=== PATIENT | female | born 1940 | race Caucasian/White ===

== ENCOUNTER → 2017-02-28 | Outpatient (CLI) | payer MEDICARE ==
[2017-02-28 10:23] LABS: ALANINE AMINOTRANSFERASE 31 U/L (9-52); ALBUMIN 3.7 g/dL (3.5-5.0); ALKALINE PHOSPHATASE 61 U/L (38-126); ANION GAP 9 (5-19); ASPARTATE AMINO TRANSFERASE 25 U/L (14-36); BILIRUBIN,DIRECT 0.4 mg/dL (0.0-0.4); BILIRUBIN,TOTAL 0.9 mg/dL (0.2-1.3); BLOOD UREA NITROGEN 14 mg/dL (7-20); CALCIUM 9.2 mg/dL (8.4-10.2); CARBON DIOXIDE 32 mmol/L (22-30); CHLORIDE 100 mmol/L (98-107); CHOLESTEROL 209.46 mg/dL (0-200); CREATININE RESULT 0.66 mg/dL (0.52-1.25); Direct HDL 50 mg/dL (>40); GLUCOSE 106 mg/dL (75-110); POTASSIUM 4.4 mmol/L (3.6-5.0); SODIUM 140.8 mmol/L (137-145); TRIGLYCERIDES 151 mg/dL (<150)
[2017-02-28 10:34] LABS: DIRECT LDL 119 mg/dL (<100)
[2017-02-28 10:39] LABS: VLDL CHOLESTEROL 30.2 mg/dL (10-31)
== END ==
LOC: OD 08:40
PROVIDERS: ATTEND Internal Medicine
DX: R07.2 Precordial pain (principal); I48.0 Paroxysmal atrial fibrillation; I47.1 Supraventricular tachycardia; R09.89 Other specified symptoms and signs involving the circulatory and respiratory systems; E78.4 Other hyperlipidemia; I10 Essential (primary) hypertension; E78.5 Hyperlipidemia, unspecified; Z79.899 Other long term (current) drug therapy
CPT/HCPCS: 36415; 80053; 80061

== ENCOUNTER → 2017-07-01 | Outpatient (CLI) | payer MEDICARE ==
--- NOTE | 2017-07-01 08:28 | RADIOLOGY REPORT (SQ) ---
EXAM DESCRIPTION: CT SINUSES FOR ENT COMPLETED DATE/TIME: 07/01/2017 7:37 am REASON FOR STUDY: BENIGN NEOPLASM OF MIDDLE EAR, NASAL CAVITY AND ACCESSORY SINUSES (D14.0) D14.0 B ENIGN NEOPLASM OF MID EAR, NASL CAV AND ACCESSORY SIN COMPARISON: None. TECHNIQUE: Noncontrast scanning through the paranasal sinuses using bone algorithm. Reconstructed MPR images reviewed. All images stored on PACS. Images acquired for image guided surgery. All CT scanners at this facility use dose modulation, iterative reconstruction, and/or weight based d osing when appropriate to reduce radiation dose to as low as reasonably achievable (ALARA). [facility]: Dose Right [facility]: CareDose [facility]: Dose Right [facility]: Teradose 4D [facility]: Datameer RADIATION DOSE: mGy. FINDINGS: NASAL PASSAGES: Soft tissue in the inferior left nasal passage. Right nasal passage clear. OSTEOMEATAL UNITS AND NASOFRONTAL DUCTS: Soft tissue occluding the right osteomeatal unit. Left oste omeatal unit is patent. No agger nasi or Arnie cells. MAXILLARY SINUSES: Soft tissue filling the right maxillary sinus. Left maxillary sinus clear. Maxill belle sinus outlets are patent. ETHMOID SINUSES: Well-pneumatized and clear. SPHENOID SINUSES: Well-pneumatized and clear. No sphenoethmoid air cells or pneumatized pterygoid rec ess. No pneumatized dorsal sella. FRONTAL SINUSES: Well-pneumatized and clear. MASTOID AIR CELLS: Clear. ORBITS: Normal and symmetrical. NASAL SEPTUM: Midline. No nasal septal spurs. TEMPOROMANDIBULAR JOINTS: Normal. TURBINATES: No pneumatized turbinates. MUCOPERIOSTEAL THICKENING: No. MUCOCELE: No. OTHER: No other significant findings. IMPRESSION: SOFT TISSUE FILLING THE RIGHT MAXILLARY SINUS WITH OCCLUSION OF THE OSTEOMEATAL UNIT. T HERE IS ALSO SOFT TISSUE IN THE INFERIOR LEFT NASAL CAVITY. TECHNICAL DOCUMENTATION: JOB ID: [id number] Quality ID # 436: Final reports with documentation of one or more dose reduction techniques (e.g., Au tomated exposure control, adjustment of the mA and/or kV according to patient size, use of iterative reconstruction technique) 2010 [employer]- All Rights Reserved
== END ==
LOC: RAD 07:10
PROVIDERS: ATTEND Internal Medicine
DX: D14.0 Benign neoplasm of middle ear, nasal cavity and accessory sinuses (principal)
CPT/HCPCS: 70486

== ENCOUNTER → 2017-09-01 | Outpatient (CLI) | payer MEDICARE | LOC: OD 13:15 | PROVIDERS: ATTEND Internal Medicine | DX: Z53.9 Procedure and treatment not carried out, unspecified reason (principal) ==

== ENCOUNTER → 2017-09-03 | Outpatient (CLI) | payer MEDICARE ==
[2017-09-03 11:25] LABS: CHOLESTEROL 171.29 mg/dL (0-200); Direct HDL 47 mg/dL (>40); TRIGLYCERIDES 161 mg/dL (<150)
[2017-09-03 11:36] LABS: DIRECT LDL 95 mg/dL (<100)
[2017-09-03 11:40] LABS: VLDL CHOLESTEROL 32.2 mg/dL (10-31)
== END ==
LOC: OD 09:08
PROVIDERS: ATTEND Internal Medicine
DX: E78.4 Other hyperlipidemia (principal); R07.2 Precordial pain; I48.0 Paroxysmal atrial fibrillation; I47.1 Supraventricular tachycardia; R09.89 Other specified symptoms and signs involving the circulatory and respiratory systems; I10 Essential (primary) hypertension; Z79.899 Other long term (current) drug therapy
CPT/HCPCS: 36415; 80061

== ENCOUNTER → 2017-12-17 | Outpatient (CLI) | payer MEDICARE ==
--- NOTE | 2017-12-17 10:43 | RADIOLOGY REPORT (SQ) ---
EXAM DESCRIPTION: CT CHEST WITH COMPLETED DATE/TIME: 12/17/2017 10:11 am REASON FOR STUDY: R05 COUGH R05 COUGH COMPARISON: Chest x-ray dated September 2014 TECHNIQUE: CT scan of the chest performed using helical scanning technique with dynamic intravenous contrast injection. Images reviewed with lung, soft tissue and bone windows. Reconstructed coronal and sagittal MPR images reviewed. All images stored on PACS. All CT scanners at this facility use dose modulation, iterative reconstruction, and/or weight based d osing when appropriate to reduce radiation dose to as low as reasonably achievable (ALARA). [facility]: Dose Right [facility]: CareDose [facility]: Dose Right [facility]: Teradose 4D [facility]: Zenter CONTRAST TYPE AND DOSE: contrast/concentration: Isovue 370.00 mg/ml; Total Contrast Delivered: 79.2 ml; Total Saline Delivered: 20.0 ml RENAL FUNCTION: Creatinine 0.5 RADIATION DOSE: CT Rad equipment meets quality standard of care and radiation dose reduction techniq ues were employed. CTDIvol: 19.2 mGy. DLP: 758 mGy-cm. . LIMITATIONS: None. FINDINGS: LUNGS AND PLEURA: Fairly diffuse reticulonodular densities are identified most likely claims collector livia in nature. An acute process including an atypical pneumonia cannot be completely excluded howeve r and clinical correlation and followup is recommended. A somewhat irregular pleural-based mass is i dentified in the left upper lung field centered on image number 47 most consistent with pleural and p arenchymal scarring although the possibility of a pleural base mass cannot be excluded. PET-CT scan or followup is recommended to confirm stability. No consolidations or pleural effusions are identifi ed. HILAR AND MEDIASTINAL STRUCTURES: No identified masses or abnormal nodes. HEART AND VASCULAR STRUCTURES: No aneurysm or dissection. No central pulmonary emboli. No pericardi al effusion. HARDWARE: None in the chest. UPPER ABDOMEN: No significant findings. Limited exam. THYROID AND OTHER SOFT TISSUES: No masses. No adenopathy. BONES: Bony structures are osteopenic with a thoracic scoliosis convex to the right and associated de generative changes. OTHER: No other significant finding. IMPRESSION: Fairly diffuse reticulonodular densities as noted above most likely chronic in nature ho wever the possibility of an acute process including an atypical pneumonia cannot be completely exclud ed in clinical correlation followup is recommended. Small somewhat irregular pleural base mass in th e left upper lung field as noted above most consistent with pleural and parenchymal scarring although the possibility of a pleural base mass cannot be excluded. PET-CT scan or followup is recommended f or further evaluation. Other findings as noted above TECHNICAL DOCUMENTATION: JOB ID: [id number] Quality ID # 436: Final reports with documentation of one or more dose reduction techniques (e.g., Au tomated exposure control, adjustment of the mA and/or kV according to patient size, use of iterative reconstruction technique) 2010 [employer]- All Rights Reserved Reading location - IP/workstation name: [email or web address] [email or web address] BEDS AT THE [facility]
== END ==
LOC: RAD 08:43
PROVIDERS: ATTEND Internal Medicine
DX: R05 Cough (principal); R91.8 Other nonspecific abnormal finding of lung field
CPT/HCPCS: 71260; 82565

== ENCOUNTER → 2018-01-13 | Outpatient (CLI) | payer MEDICARE ==
--- NOTE | 2018-01-14 08:47 | RADIOLOGY REPORT (SQ) ---
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 TECHNIQUE: Blood glucose level was verified. Above dose of FDG was injected intravenously. 2-D seg mented attenuation correction images were obtained from the base of the skull to the midthighs. Nonc ontrast CT images were obtained for attenuation correction and fusion with emission images. CT image s were performed without oral or intravenous contrast and are not sensitive for parenchymal lesions. A series of overlapping emission PET images were obtained. Images reviewed and manipulated at [facility] work station by the radiologist. Images stored on PACS. LIMITATIONS: None. FINDINGS: HEAD AND NECK: No areas of abnormal metabolic activity in the soft tissues of the head and neck. CHEST: No areas of abnormal metabolic activity in the chest. Specifically, the 11 mm pleural based s oft tissue density along the left superior segment lower lobe image number 91 is non metabolic. This correlates with the area of concern on CT chest 12/17/2017. ABDOMEN AND PELVIS: No areas of abnormal metabolic activity in the abdomen or pelvis. Expected physi ologic activity is present in the genitourinary system and bowel. PROXIMAL LOWER EXTREMITIES: No areas of abnormal metabolic activity in the soft tissues of the lower extremities. BONES: No abnormal metabolic activity in the visualized skeleton. ADDITIONAL CT FINDINGS: Opacified right maxillary sinus with air-fluid level from sinusitis. Hiatal hernia. Post cholecystectomy. Partial right colectomy. Degenerative changes lumbar spine. Right h ip hardware OTHER: Liver background activity 2.3 SUV. Blood pool background activity 1.9 SUV. IMPRESSION: No worrisome findings for malignancy. Non metabolic pleural-based scarring, left side TECHNICAL DOCUMENTATION: JOB ID: [id number] [employer]- All Rights Reserved Reading location - IP/workstation name: [email or web address]
== END ==
LOC: RAD 15:01
PROVIDERS: ATTEND Internal Medicine
DX: D38.2 Neoplasm of uncertain behavior of pleura (principal); J94.9 Pleural condition, unspecified
CPT/HCPCS: 78815; A9552

== ENCOUNTER → 2018-03-10 | Outpatient (CLI) | payer MEDICARE ==
[2018-03-10 12:09] LABS: ALANINE AMINOTRANSFERASE 88 U/L (9-52); ALBUMIN 3.8 g/dL (3.5-5.0); ALKALINE PHOSPHATASE 62 U/L (38-126); ASPARTATE AMINO TRANSFERASE 143 U/L (14-36); BILIRUBIN,DIRECT 0.5 mg/dL (0.0-0.4); CHOLESTEROL 155.03 mg/dL (0-200); TOTAL PROTEIN 7.1 g/dL (6.3-8.2); TRIGLYCERIDES 139 mg/dL (<150)
[2018-03-10 12:20] LABS: DIRECT LDL 89 mg/dL (<100)
== END ==
LOC: OD 10:38
PROVIDERS: ATTEND Internal Medicine
DX: E78.4 Other hyperlipidemia (principal); I10 Essential (primary) hypertension; R07.2 Precordial pain; I48.0 Paroxysmal atrial fibrillation; I47.1 Supraventricular tachycardia; R09.89 Other specified symptoms and signs involving the circulatory and respiratory systems; Z79.899 Other long term (current) drug therapy
CPT/HCPCS: 36415; 80061; 80076

== ENCOUNTER → 2018-04-14 | Outpatient (CLI) | payer MEDICARE ==
[2018-04-14 10:34] LABS: ALANINE AMINOTRANSFERASE 33 U/L (9-52); ALKALINE PHOSPHATASE 66 U/L (38-126); ASPARTATE AMINO TRANSFERASE 34 U/L (14-36); BILIRUBIN,DIRECT 0.3 mg/dL (0.0-0.4); BILIRUBIN,TOTAL 0.7 mg/dL (0.2-1.3); TOTAL PROTEIN 7.5 g/dL (6.3-8.2)
[2018-04-15 05:41] LABS: HEPATITIS A AB IGM Negative (Negative); HEPATITIS B CORE AB IGM Negative (Negative); HEPATITS B SURFACE ANTIGEN Negative (Negative)
[2018-04-15 07:08] LABS: HEPATITIS C VIRUS ANTIBODY <0.1 s/co ratio (0.0-0.9)
[2018-04-16 11:17] LABS: ANTINUCLEAR ANTIBODIES Negative (Negative)
== END ==
LOC: OD 08:55
PROVIDERS: ATTEND Internal Medicine Gastroenterology
DX: E83.119 Hemochromatosis, unspecified (principal); R94.5 Abnormal results of liver function studies
CPT/HCPCS: 36415; 80074; 80076; 82390; 82728; 83540; 86038; 86256

== ENCOUNTER 2018-04-20 08:34 | Day surgery (SDC) | payer MEDICARE ==
[~2018-04-20 08:34] MED LIST: PROPOFOL INJ 200 MG/20 ML VIAL IV ONE
[2018-04-20 10:20] VITALS: BP 126/63
--- NOTE | 2018-04-20 12:55 | Operative Report ---
Operative Report DATE OF SURGERY: 04/20/18 Operative Report: The risks, benefits and alternatives of the procedure including risks of bleeding, perforation requiring surgery are explained to the patient in detail and informed consent was obtained. Patient is taken back to the endoscopy suite and placed in the left, lateral decubital position. Timeout was called. Propofol medication is administered. A rectal examination is done which did not reveal any masses, tears or fissures. An Olympus videoscope was inserted into the patient's rectum. The scope was then carefully advanced all the way to the cecum. The cecum was identified by the usual anatomical landmarks and finally into the anastomotic site.. Photodocumentation is obtained. The scope was then sequentially pulled back via the rest segments of the colon including the anastomosis she had had previous surgery, transverse colon, splenic flexure , descending colon and finally into the rectosigmoid portions of the colon. Retroflexion maneuver is performed. PREOPERATIVE DIAGNOSIS: Patient with a previous history of polyp that was resected likely had a right hemicolectomy. Due for surveillance POSTOPERATIVE DIAGNOSIS: Normal anastomotic site some scarring noted biopsies obtained. Polyp in the sigmoid removed via snare polypectomy. Internal hemorrhoids OPERATION: Colonoscopy with snare polypectomy. Colonoscopy with biopsy SURGEON: MILLIE CUELLAR ANESTHESIA: LMAC TISSUE REMOVED OR ALTERED: As noted above. COMPLICATIONS: None. ESTIMATED BLOOD LOSS: None. INTRAOPERATIVE FINDINGS: As noted above. PROCEDURE: Patient tolerated procedure well. No immediate postprocedure complications are noted. Patient discharged in good condition. Discharge date 04/20/2018. Discharge diet: Regular. Discharge activity: Regular. 2-3 week follow-up to discuss findings. Patient is instructed call the office or proceed to the emergency room should there be any further problems or questions. 5 year surveillance colonoscopy.
== END 2018-04-20 10:10 | disposition home or self-care (01) ==
LOC: END 08:34
PROVIDERS: ATTEND Internal Medicine Gastroenterology
DX: D12.5 Benign neoplasm of sigmoid colon (principal); K52.9 Noninfective gastroenteritis and colitis, unspecified; K64.8 Other hemorrhoids; Z86.010 Personal history of colon polyps; I10 Essential (primary) hypertension; M19.90 Unspecified osteoarthritis, unspecified site; E66.9 Obesity, unspecified; Z68.39 Body mass index [BMI] 39.0-39.9, adult; R06.02 Shortness of breath; I48.91 Unspecified atrial fibrillation; E78.5 Hyperlipidemia, unspecified; I47.1 Supraventricular tachycardia; Z79.01 Long term (current) use of anticoagulants; Z79.899 Other long term (current) drug therapy
CPT/HCPCS: 45380; 45385; 88305 ×2; J2704; 811

== ENCOUNTER → 2018-04-21 | Outpatient (CLI) | payer MEDICARE ==
--- NOTE | 2018-04-21 10:17 | RADIOLOGY REPORT (SQ) ---
EXAM DESCRIPTION: U/S ABDOMEN COMPLETE W/DOPPLER COMPLETED DATE/TIME: 04/21/2018 9:03 am REASON FOR STUDY: FATTY (CHANGE OF) LIVER, NOT ELSEWHERE CLASSIFIED K76.0 FATTY (CHANGE OF) LIVER, NOT ELSEWHERE CLASSIFIED COMPARISON: PET-CT scan dated January 2018 TECHNIQUE: Dynamic and static grayscale images acquired of the abdomen and recorded on PACS. Additio nal selected color Doppler and spectral images recorded. LIMITATIONS: None. FINDINGS: PANCREAS: No masses. Visualized pancreatic duct normal caliber. LIVER: Echotexture is coarse with increased echogenicity consistent with fatty infiltration. LIVER VASCULATURE: Normal directional flow of the main portal vein. GALLBLADDER: Status post cholecystectomy ULTRASOUND-DETECTED ABAD'S SIGN: Negative. INTRAHEPATIC DUCTS AND COMMON DUCT: CBD and intrahepatic ducts normal caliber. No filling defects. INFERIOR VENA CAVA: Normal flow. AORTA: No aneurysm. RIGHT KIDNEY: 11.7 cm in length. Normal echogenicity. No solid or suspicious masses. No hydron ephrosis. No calcifications. LEFT KIDNEY: 12.6 cm in length Normal echogenicity. No solid or suspicious masses. No hydronep hrosis. No calcifications. SPLEEN:Normal size. No solid masses. PERITONEAL AND PLEURAL SPACES: No ascites or effusions. OTHER: No other significant finding. IMPRESSION: FATTY LIVER. NO OTHER SIGNIFICANT FINDING. TECHNICAL DOCUMENTATION: JOB ID: [id number] [employer]- All Rights Reserved Reading location - IP/workstation name: [email or web address]
== END ==
LOC: RAD 08:19
PROVIDERS: ATTEND Internal Medicine Gastroenterology
DX: K76.0 Fatty (change of) liver, not elsewhere classified (principal)
CPT/HCPCS: 76700; 93976

== ENCOUNTER → 2018-07-21 | Outpatient (CLI) | payer MEDICARE ==
--- NOTE | 2018-07-21 18:47 | XCELERA REPORT ---
[address] [address] Transthoracic Echocardiogram Report Name: JACOBO RAMOS Age: 78 yrs Gender: Female : 1940 Patient Status: Preadmit Patient Location: RAD Study Date: 07/21/2018 08:22 AM Height: 66 in Weight: 235 lb BSA: 2.1 m2 Procedure: A two-dimensional transthoracic echocardiogram with color flow and Doppler was performed. The study was technically difficult with many images being suboptimal in quality. Reason For Study: AFIB History: ATRIAL FIBRILLATION. Ordering Physician: KAILA HOUSTON Performed By: Theresa Hunter Interpretation Summary The left ventricle is normal in size. There is normal left ventricular wall thickness. LV EF is Greater than 60% Doppler measurements suggest normal left ventricular diastolic function The left ventricular wall motion is normal. There is no thrombus. There is no ventricular septal defect visualized. The right ventricle is normal in size and function. The right atrium is normal. The left atrium is borderline dilated. The interatrial septum is intact with no evidence for an atrial septal defect. There is no evidence of mitral valve prolapse. There is no vegetation seen on the mitral valve. There is no mitral valve stenosis. There is no mitral regurgitation noted. There is no aortic valvular vegetation. There is no aortic valve stenosis There is no LVOT obstruction. No aortic regurgitation is present. There is no tricuspid stenosis. There is a trace amount of tricuspid regurgitation Right ventricular systolic pressure is normal. RVSP is 22 to 27 mm of Hg , with RA mean of 5 to 10. The inferior vena cava appeared normal and decreased > 50% with respiration (RAP 5-10 mmHg) There is no pericardial effusion. MMode/2D Measurements & Calculations RVDd: 2.7 cm LVIDd: 4.2 cm FS: 33.4 % Ao root diam: 2.8 cm IVSd: 1.0 cm LVIDs: 2.8 cm EDV(Teich): 77.8 ml Ao root area: 6.2 cm2 LVPWd: 1.00 cm ESV(Teich): 29.2 ml LA dimension: 4.1 cm EF(Teich): 62.5 % Doppler Measurements & Calculations MV E max daya: MV P1/2t max daya: Ao V2 max: LV V1 max P.7 cm/sec 102.2 cm/sec 106.8 cm/sec 3.7 mmHg MV A max daya: MV P1/2t: 39.3 msec Ao max P.6 mmHgLV V1 max: 54.3 cm/sec MVA(P1/2t): 5.6 cm2 95.8 cm/sec MV E/A: 1.9 MV dec slope: 761.5 cm/sec2 MV dec time: 0.14 sec PA V2 max: TR max daya: MV P1/2t-pr_phl: 79.0 cm/sec 207.7 cm/sec 39.3 msec PA max P.5 mmHg TR max P.3 mmHg Left Ventricle The left ventricle is normal in size. There is normal left ventricular wall thickness. Left ventricular systolic function is normal. LV EF is Greater than 60%. Doppler measurements suggest normal left ventricular diastolic function. The left ventricular wall motion is normal. There is no thrombus. There is no ventricular septal defect visualized. Right Ventricle The right ventricle is normal in size and function. Atria The right atrium is normal. The left atrium is borderline dilated. The interatrial septum is intact with no evidence for an atrial septal defect. Mitral Valve There is no evidence of mitral valve prolapse. There is no vegetation seen on the mitral valve. There is no mitral valve stenosis. There is no mitral regurgitation noted. Aortic Valve There is no aortic valvular vegetation. There is no aortic valve stenosis. There is no LVOT obstruction. No aortic regurgitation is present. Tricuspid Valve There is no tricuspid stenosis. There is a trace amount of tricuspid regurgitation. Right ventricular systolic pressure is normal. RVSP is 22 to 27 mm of Hg , with RA mean of 5 to 10. Great Vessels The aortic root is not well visualized. The inferior vena cava appeared normal and decreased > 50% with respiration (RAP 5-10 mmHg). Effusions There is no pericardial effusion. : KAILA HOUSTON > Kaila Houston
== END ==
LOC: RAD 07:43
PROVIDERS: ATTEND Specialist
DX: I48.0 Paroxysmal atrial fibrillation (principal)
CPT/HCPCS: 93306

== ENCOUNTER → 2018-08-03 | Outpatient (CLI) | payer MEDICARE ==
[2018-08-03 10:21] LABS: ABSOLUTE EOSINOPHILS # (AUTO) 0.1 10^3/uL (0.0-0.6); ABSOLUTE LYMPHOCYTES (AUTO) 1.4 10^3/uL (0.5-4.7); ABSOLUTE MONOCYTES (AUTO) 0.4 10^3/uL (0.1-1.4); ABSOLUTE NEUT (AUTO) 3.1 10^3/uL (1.7-8.2); BASOPHILS % (AUTO) 0.8 % (0-2); EOSINOPHILS % (AUTO) 2.5 % (0-6); HEMATOCRIT 45.4 % (36.0-47.0); HEMOGLOBIN 15.2 g/dL (12.0-15.5); LYMPHOCYTES % (AUTO) 27.4 % (13-45); MEAN CORPUSCULAR HEMOGLOBIN 31.2 pg (27.0-33.4); MEAN CORPUSCULAR HGB CONC 33.5 g/dL (32.0-36.0); MEAN CORPUSCULAR VOLUME 93 fl (80-97); MONOCYTES % (AUTO) 8.6 % (3-13); PLATELET COUNT 213 10^3/uL (150-450); RED BLOOD COUNT 4.88 10^6/uL (3.72-5.28); RED CELL DISTRIBUTION WIDTH 13.7 % (11.5-14.0); SEGMENTED NEUTROPHILS % (AUTO) 60.7 % (42-78); TOTAL CELLS COUNTED % (AUTO) 100 %
[2018-08-03 11:02] LABS: ALANINE AMINOTRANSFERASE 22 U/L (9-52); ALBUMIN 3.8 g/dL (3.5-5.0); ALKALINE PHOSPHATASE 57 U/L (38-126); ANION GAP 14 (5-19); ASPARTATE AMINO TRANSFERASE 27 U/L (14-36); BILIRUBIN,DIRECT 0.2 mg/dL (0.0-0.4); BILIRUBIN,TOTAL 0.7 mg/dL (0.2-1.3); BLOOD UREA NITROGEN 17 mg/dL (7-20); CALCIUM 8.8 mg/dL (8.4-10.2); CARBON DIOXIDE 26 mmol/L (22-30); CHLORIDE 103 mmol/L (98-107); CHOLESTEROL 171.48 mg/dL (0-200); GLUCOSE 109 mg/dL (75-110); POTASSIUM 4.2 mmol/L (3.6-5.0); SODIUM 142.9 mmol/L (137-145); TOTAL PROTEIN 7.2 g/dL (6.3-8.2); TRIGLYCERIDES 118 mg/dL (<150)
[2018-08-03 11:13] LABS: DIRECT LDL 94 mg/dL (<100)
== END ==
LOC: OD 09:07
PROVIDERS: ATTEND Internal Medicine
DX: I48.0 Paroxysmal atrial fibrillation (principal); I10 Essential (primary) hypertension; E78.49 Other hyperlipidemia; I47.1 Supraventricular tachycardia; R09.89 Other specified symptoms and signs involving the circulatory and respiratory systems; Z79.899 Other long term (current) drug therapy
CPT/HCPCS: 36415; 80053; 80061; 84443; 85025

== ENCOUNTER → 2019-12-10 | Outpatient (CLI) | payer MEDICARE ==
[2019-12-10 08:45] LABS: ALBUMIN 3.9 g/dL (3.5-5.0); ALKALINE PHOSPHATASE 59 U/L (38-126); ASPARTATE AMINO TRANSFERASE 29 U/L (14-36); BILIRUBIN,DIRECT 0.2 mg/dL (0.0-0.4); BILIRUBIN,TOTAL 0.6 mg/dL (0.2-1.3); CHOLESTEROL 168.62 mg/dL (0-200); TOTAL PROTEIN 7.3 g/dL (6.3-8.2); TRIGLYCERIDES 156 mg/dL (<150)
[2019-12-10 08:58] LABS: DIRECT LDL 91 mg/dL (<100)
[2019-12-10 09:01] LABS: VLDL CHOLESTEROL 31.2 mg/dL (10-31)
== END ==
LOC: OD 07:48
PROVIDERS: ATTEND Specialist
DX: I48.0 Paroxysmal atrial fibrillation (principal); I10 Essential (primary) hypertension; E78.49 Other hyperlipidemia; I47.1 Supraventricular tachycardia; R09.89 Other specified symptoms and signs involving the circulatory and respiratory systems; D64.9 Anemia, unspecified; E05.90 Thyrotoxicosis, unspecified without thyrotoxic crisis or storm; E66.8 Other obesity; R06.00 Dyspnea, unspecified; Z79.899 Other long term (current) drug therapy
CPT/HCPCS: 36415; 80061; 80076

== ENCOUNTER → 2020-10-24 | Outpatient (CLI) | payer MEDICARE ==
--- NOTE | 2020-10-24 10:31 | RADIOLOGY REPORT (SQ) ---
EXAM DESCRIPTION: KNEE RIGHT 2 VIEWS IMAGES COMPLETED DATE/TIME: 10/24/2020 9:13 am REASON FOR STUDY: PRIMARY GENERALIZED (OSTEO)ARTHRITIS M15.0 PRIMARY GENERALIZED (OSTEO)ARTHRITIS COMPARISON: 12/18/2015 NUMBER OF VIEWS: Two views. TECHNIQUE: AP and lateral radiographic images acquired of the right knee. LIMITATIONS: None. FINDINGS: MINERALIZATION: Normal. BONES: No acute fracture or dislocation. No worrisome bone lesions. No significant osteophytes. JOINT: Prior total knee arthroplasty. OTHER: No other significant finding. IMPRESSION: Prior total joint replacement. No acute fracture or dislocation. TECHNICAL DOCUMENTATION: JOB ID: [id number] 2010 [employer]- All Rights Reserved Reading location - IP/workstation name: [email or web address]
--- NOTE | 2020-10-24 10:31 | RADIOLOGY REPORT (SQ) ---
EXAM DESCRIPTION: ANKLE RIGHT AP/LATERAL IMAGES COMPLETED DATE/TIME: 10/24/2020 9:13 am REASON FOR STUDY: PRIMARY GENERALIZED (OSTEO)ARTHRITIS M15.0 PRIMARY GENERALIZED (OSTEO)ARTHRITIS COMPARISON: None. NUMBER OF VIEWS: Three views. TECHNIQUE: AP, lateral, and oblique radiographic images acquired of the right ankle. LIMITATIONS: None. FINDINGS: MINERALIZATION: Osteopenia. BONES: No acute fracture or dislocation. No worrisome bone lesions. JOINTS: No effusions. SOFT TISSUES: No soft tissue swelling. No foreign body. OTHER: Small calcaneal spurs. IMPRESSION: Osteopenia. Small calcaneal spurs. No acute findings. TECHNICAL DOCUMENTATION: JOB ID: [id number] 2010 [employer]- All Rights Reserved Reading location - IP/workstation name: [email or web address]
--- NOTE | 2020-10-24 10:34 | RADIOLOGY REPORT (SQ) ---
EXAM DESCRIPTION: HIP RIGHT AP/LATERAL IMAGES COMPLETED DATE/TIME: 10/24/2020 9:13 am REASON FOR STUDY: PRIMARY GENERALIZED (OSTEO)ARTHRITIS M15.0 PRIMARY GENERALIZED (OSTEO)ARTHRITIS COMPARISON: None. NUMBER OF VIEWS: Two views. TECHNIQUE: AP pelvis and additional frog legview of the right hip. LIMITATIONS: None. FINDINGS: MINERALIZATION: Normal. RIGHT HIP: Postsurgical and posttraumatic changes involving the proximal right femur. Internal fixat ion device is in place. There is remodeling of the proximal femur. No acute fracture or dislocation . Joint space narrowing with subchondral sclerosis. LEFT HIP: Degenerative changes. PUBIS AND ISCHIUM: No fracture. PELVIS: No fracture. SACRUM: No fracture or dislocation. No worrisome bone lesions. LOWER LUMBAR SPINE: Degenerative changes in the visualize lower lumbar spine. SOFT TISSUES: No findings. OTHER: No other significant finding. IMPRESSION: Posttraumatic and postsurgical changes in the right hip. Degenerative changes in the le ft hip. No acute fracture or dislocation. TECHNICAL DOCUMENTATION: JOB ID: [id number] 2010 [employer]- All Rights Reserved Reading location - IP/workstation name: [email or web address]
== END ==
LOC: RAD 08:38
PROVIDERS: ATTEND Internal Medicine
DX: M15.0 Primary generalized (osteo)arthritis (principal)